=== PATIENT | male | born 1955 | race Caucasian/White ===

== ENCOUNTER 2018-01-01 00:31 | Inpatient (IN) | payer OTHER ==
[~2018-01-01] VITALS: Ht 193 cm; Wt 149.7 kg
[~2018-01-01 00:31] MED LIST: ASPIRIN EC325 M2 PO; COLACE100 M1 PO; DILAUDID2 M1 PO; LISINOPRIL-HCT1 EAC1 PO; LISINOPRIL20 M1 PO; MIRALAX17 G1 PO; TRAMADOL HCL50 M1 PO; VITAMIN B-121000 MC3 PO; VITAMIN D3400 UNI1 PO; XALATAN2.5 ML OPH
--- NOTE | 2018-01-01 13:53 | Operative Report ---
Operative/Inv Procedure Report Surgery Date: 01/01/18 Name of Procedure: Right total knee replacement Pre-Operative Diagnosis: Primary right knee DJD Post-Operative Diagnosis: Same Estimated Blood Loss: 50ml to 100ml Surgeon/Folder Taper Operator: Michael FIGUEROA,Charlie Canseco Anesthesia: block Operative/Procedure Note Note: Description of Procedure: The patient was taken to the operating room and positively identified. After induction of spinal anesthesia and administration of appropriate pre-operative antibiotics, the patient was positioned supine on the operating room table and all bony prominences were well padded. A well-padded pneumatic tourniquet was placed on the right upper thigh. After performing a surgical timeout, the right lower extremity was prepped and draped in the usual sterile fashion. After exsanguination with Esmarch the tourniquet was inflated to 275 mm of mercury. A standard medial parapatellar approach was made to the knee. This was carried down through skin and subcutaneous tissue to the level of the fascia. Meticulous hemostasis was maintained with Bovie electrocautery. The extensor mechanism and patellar retinaculum were opened sharply and the patella was everted. The infrapatellar fat was resected in order to improve exposure. Osteophytes were trimmed from the patella and femoral condyles and the patella was re-everted and tucked laterally. A medial release was performed and the cruciate ligaments were resected. The tibia was then subluxed anteriorly. Utilizing the appropriate extra-medullary guide, the proximal tibia was trimmed perpendicular to the long axis of the tibial shaft. Attention was then turned to the femur. After opening the medullary canal, the distal femoral cut was made in 6 degrees of valgus utilizing the appropriate intra-medullary guide. The extension gap was checked and found to be appropriate. The femur was then sized and the remainder of the femoral cuts were made with a size 7 4-in-1 femoral cutting guide. The flexion gap was checked and found to be symmetric and appropriate. The knee was then trialed with a size 7 femoral component, a size 7 tibial component and a size 11 mm polyethylene insert. The patella was trimmed to accept an A 35 patella. This yielded excellent range of motion, stability and patellar tracking. All trial components were removed and the knee was copiously irrigated with sterile saline. All components were cemented into place with [place] Simplex cement. All the components were of the Lauryn Triathlon knee system of the above stated sizes. The knee was again irrigated after cementation. The extensor mechanism and patellar retinaculum were repaired using interrupted #1 vicryl suture. The skin was re-approximated with 2-0 vicryl and closed with haider. A sterile dressing was applied, the tourniquet was deflated, the patient was awakened and taken to the recovery room in satisfactory condition.
--- NOTE | 2018-01-01 14:05 | Admission Core Measures ---
Acute Coronary Syndrome (CM) ACS Core Measures Acute Coronary Syndrome Diagnosis No Congestive Heart Failure (NEW) CHF Core Measures Congestive Heart Failure Diagnosis No Cerebrovascular Accident (NEW) CVA Core Measures CVA/TIA Diagnosis No Venous Thromboembolism VTE Core Brenna (View Protocol) VTE Risk Factors Surgery No Mechanical VTE Prophylaxis d/t N/A MechProphylax Ordered No VTE Pharm Prophylaxis d/t NA PharmProphylax ordered Problem List As ranked by this Provider includes Assessment & Plan 1. S/P knee replacement HOME MEDS Home Med List Aspirin (Ecotrin*) 325 MG TABLET.DR 1 TAB PO BID ANTICOAGULATION Cholecalciferol (Vitamin D3) (Vitamin D3) (Unknown Strength) TABLET 2,000 IU PO DAILY SUPPLEMENT (Reported) Cyanocobalamin (Vitamin B-12) (Unknown Strength) TABLET 2,000 MCG PO DAILY SUPPLEMENT (Reported) Latanoprost (Xalatan) 2.5 ML DROPS 1 GTT OPH QPM BOTH EYES (Reported) Lisinopril 20 MG TABLET 1 TAB PO DAILY Blood Pressure Tramadol HCl 50 MG TABLET 1 TAB PO Q6P PRN MODERATE PAIN
[2018-01-01] MEDS ORDERED: PRILOSEC OTC20 M1 PO (14:07)
[2018-01-01] MEDS ORDERED: COLACE100 M1 PO (14:07)
[2018-01-01] MEDS ORDERED: PERCOCET 5-3251 EACH PO (14:07)
[2018-01-01] MEDS ORDERED: ASPIRIN EC325 M2 PO (14:07)
[2018-01-01] MEDS ORDERED: MIRALAX17 G1 PO (14:07)
[2018-01-01] MEDS ORDERED: MS CONTIN15 M3 PO (14:07)
--- NOTE | 2018-01-01 14:12 | Patient Discharge Instructions ---
Discharge Instructions General Discharge Information You were seen/treated for: Right knee pain related to unilateral primary osteoarthritis You had these procedures: Right total knee replacement Watch for these problems: Increasing pain despite the use of pain medication Increasing redness, warmth or swelling Drainage of any type from incision Inability to bear weight on operative leg Persistent nausea and vomiting Fever greater than 101.5 degrees Do not soak the wound: No No bath, but you may shower: Yes Other wound care: Please keep wound clean and dry. No ointments or lotions of any type on or near incision at any time. No exceptions. Your dressing will be changed by your nurse on the second day after your surgery. Daily dry dressing changes are recommended each day thereafter. Do not soak your wound in a bath at any time until otherwise indicated by your surgeon. You may shower, please dry wound immediately after shower with a clean towel. Special Instructions: Aspirin: You are taking this medication to help prevent blood clot formation. Please take with food to protect your stomach lining. Please take as directed. Constipation: Pain medication can cause constipation. Dr. Rodriguez has recommended that you take Colace and miralax each day. You may discontinue this medication if you develop loose stool or diarrhea. If you wish to continue this medication, it is available over the counter. If you are unable to move your bowels after several days, if you are unable to pass gas and are developing bloating, nausea, or vomiting as a result, please contact your doctor. Diet Continue normal diet: Yes Recommended Diet: Regular Activity Full Activity/No Limits: No Activity Self Limited: Yes Pounds, do NOT lift more than: 10 Acute Coronary Syndrome Inclusion Criteria At DC or during hospital stay patient has or had the following: ACS DIAGNOSIS No Discharge Core Measures Meds if any: Prescribed or Continued at Discharge Meds if any: NOT Prescribed or Continued at Discharge Congestive Heart Failure Inclusion Criteria At DC or during hospital stay patient has or had the following: CHF DIAGNOSIS No Discharge Core Measures Meds if any: Prescribed or Continued at Discharge Meds if any: NOT Prescribed or Continued at Discharge Cerebrovascular accident Inclusion Criteria At DC or during hospital stay patient has or had the following: CVA/TIA Diagnosis No Discharge Core Measures Meds if any: Prescribed or Continued at Discharge Meds if any: NOT Prescribed or Continued at Discharge Venous thromboembolism Inclusion Criteria VTE Diagnosis No VTE Type NONE VTE Confirmed by (Test) NONE Discharge Core Measures - Per Current guidelines, there needs to be overlap - treatment for the first 5 days of Warfarin therapy. - If discharged on Warfarin prior to 5 days of - overlap therapy, the patient will need to be - assessed for post discharge needs including - *Post discharge parental anticoagulation - *Warfarin and/or parental anticoagulation education - *Follow up date to check INR post discharge At least 5 days overlap therapy as Inpatient No Meds if any: Prescribed or Continued at Discharge Note: Overlap Therapy is Warfarin and Anticoagulant Meds if any: NOT Prescribed or Continued at Discharge
--- NOTE | 2018-01-01 14:13 | Surgical Discharge Summary ---
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 Relation not specified for: FH: polycystic kidney Psychosocial History Who Do You Live With? Family What is Your Primary Language? Lao Review of Systems: refer to H&P Hospital Course Course Attending Physician: Charlie Rodriguez MD Primary Care Physician: Dmitriy Porras MD Hospital Course: Patient was admitted to the hospital for an elective total joint replacement. The procedure was tolerated well and patient was transferred to a general surgical floor. Diet was advanced and tolerated. The patient was evaluated and treated by physical therapy. At the time of hospital discharge, the vital signs were stable, neurovascular status was intact, and pain was controlled with the use of oral pain medications. Allergies: Coded Allergies: hydromorphone (From DILAUDID) (SYNCOPE 12/28/17) Disposition Summary Disposition Principal Diagnosis: Right knee unilateral primary osteoarthritis Additional Diagnosis: None Discharge Disposition: home health services Discharge Instructions General Discharge Information Code Status: Full Code Patient's Diet: Regular, advance as tolerated Patient's Activity: WBAT Follow-Up Instructions/Appts: Follow up with Dr. Rodriguez in 6 weeks from date of surgery. Please call office to arrange &/or confirm this appointment. Medications at Discharge Discharge Medications: Stop taking the following medications: Aspirin (Ecotrin*) 325 MG TABLET. ORAL TWICE DAILY Qty = 60 Tramadol HCl (Tramadol HCl) 50 MG TABLET ORAL EVERY SIX HOURS NEEDED as needed for MODERATE PAIN Qty = 20 Continue taking these medications: Latanoprost (Xalatan) 2.5 ML DROPS 1 Drop In the eye Every night Comments: Last Taken:12/25/15 Time: 0200 AM Cyanocobalamin (Vitamin B-12) (Unknown Strength) TABLET 2,000 Microgram ORAL DAILY Comments: GIVEN 12/25/15 @ 1030 Cholecalciferol (Vitamin D3) (Vitamin D3) (Unknown Strength) TABLET 2,000 International Unit ORAL DAILY Comments: GIVEN 12/25/15 @ 1030 Lisinopril (Lisinopril) 20 MG TABLET 1 Tablet ORAL DAILY Days = 30 Comments: GIVEN 12/25/15 @ 1030 Start taking the following new medications: Aspirin (Ecotrin*) 325 MG TABLET.DR 1 Tablet ORAL TWICE DAILY Qty = 60 No Refills Docusate Sodium (Colace) 100 MG CAPSULE 1 Capsule ORAL TWICE DAILY Qty = 14 No Refills Instructions: DISCONTINUE USE IF YOU DEVELOP LOOSE STOOL OR DIARRHEA Polyethylene Glycol 3350 (Miralax) 17 GRAM POWD.PACK 1 Packet ORAL DAILY Qty = 7 No Refills Instructions: dissolve in water, DISCONTINUE USE IF YOU DEVELOP LOOSE STOOL OR DIARRHEA Omeprazole Magnesium (Prilosec Otc) 20 MG TABLET.DR 1 Tablet ORAL DAILY Qty = 30 No Refills Oxycodone HCl/Acetaminophen (Percocet 5-325 MG Tablet) 5 MG-325 MG TABLET 1-2 Tablet ORAL EVERY 4-6 HOURS as needed for PAIN Qty = 36 No Refills Morphine Sulfate (Ms Contin) 15 MG TABLET.ER 1 Tablet ORAL TWICE DAILY Qty = 6 No Refills
--- NOTE | 2018-01-01 15:26 | PN- Orthopedic ---
Subjective Subjective: Postop check: Patient without complaints, no pain, states he is hungry, no other perioperative issues Objective Vital Signs and I&Os Vital signs stable, afebrile, blood pressure 101/60 Physical Exam: Well-developed well-nourished no apparent distress. HEENT: Atraumatic, extraocular motion intact Neck: Supple, no lymphadenopathy Respiratory: No respiratory distress Extremities: No edema RIGHT lower extremity dressing in place, Compression wrap in place. ALPS in place Neurovascularly intact distally Bilateral calves are supple, nontender. Neuro: Alert and oriented x3 Psych: Mood affect normal, normal memory normal judgment. Skin: Warm and dry, no rash on exposed skin Assessment/Plan Assessment/Plan Postop day #0 status post right total knee arthroplasty. Perioperative antibiotics. Pain medication as needed. Out of bed Physical therapy, weightbearing as tolerated IV fluids Regular diet Follow a.m. labs Aspirin for DVT prophylaxis ALPS for DVT prophylaxis Regular home meds Dressing change postop day 2 Patient would like to start with minimal narcotic pain medication as he has had history of syncope 2 in the past after surgery. Standing IV Toradol 4 doses, tramadol ordered as well for mild pain which has helped him in the past. Disposition: Plan is for patient to go home with VNA services in 2-3 nights Core Measures Venous Thromboembolism VTE Risk Factors Surgery No Mechanical VTE Prophylaxis d/t N/A MechProphylax Ordered No VTE Pharm Prophylaxis d/t NA PharmProphylax ordered
[2018-01-01 15:45] VITALS: BP 118/72
[2018-01-01 18:14] VITALS: BP 120/64
[2018-01-01 20:13] VITALS: BP 100/60
[2018-01-01 22:39] VITALS: BP 120/60
[2018-01-02] VITALS (8 sets, daily range): BP systolic 80–120; BP diastolic 58–70
--- NOTE | 2018-01-02 07:58 | PN- Orthopedic ---
Subjective Subjective: Patient in good spirits, states he is hungry. Complains of moderate pain in the back of the knee, no anterior knee pain. He was unable to urinate and needed a straight cath as well as a Ya catheter. Urinary symptoms have resolved. Objective Vital Signs and I&Os Vital Signs Date Time Temp Pulse Resp B/P B/P Pulse O2 O2 Flow FiO2 Mean Ox Delivery Rate 01/02 718 98.5 79 20 120/62 92 Room Air 01/02 0200 98.6 85 20 118/68 93 Room Air 01/01 2239 98.9 90 20 120/60 91 Room Air 01/01 2013 98.6 95 20 100/60 91 Room Air 01/01 1814 98.4 87 20 120/64 92 Room Air 01/01 1545 97.5 86 18 118/72 95 Room Air Intake & Output 01/02 0800 06/ 0000 /04 1600 01/01 0800 01/01 0000 /03 1600 Intake Total 1270 2040 Output Total 1250 1650 Balance 20 390 Intake, IV 790 600 Intake, Oral 480 1440 Number 0 0 Bowel Movements Output, Urine 1250 1650 Patient 330 lb Weight Weight Standing Scale Measurement Method Physical Exam: Well-developed well-nourished no apparent distress. HEENT: Atraumatic, extraocular motion intact Neck: Supple, no lymphadenopathy Respiratory: No respiratory distress Extremities: No edema RIGHT lower extremity dressing in place, clean dry and intact, no active bleeding Range of motion 0-[address] in place Neurovascularly intact distally Bilateral calves are supple, nontender. Neuro: Alert and oriented x3 Psych: Mood affect normal, normal memory normal judgment. Skin: Warm and dry, no rash on exposed skinnsert postop total knee Results Last 48 Hours of Labs: Laboratory Tests 01/02 07 Chemistry Sodium Pending Potassium Pending Chloride Pending Carbon Dioxide Pending Anion Gap Pending BUN Pending Creatinine Pending BUN/Creatinine Ratio Pending Hematology CBC w Diff Pending WBC Pending RBC Pending Hgb Pending Hct Pending MCV Pending MCH Pending MCHC Pending RDW Pending Plt Count Pending MPV Pending Assessment/Plan Assessment/Plan Postop day 1 status post right total knee arthroplasty Perioperative antibiotics. Pain medication as needed. Out of bed Physical therapy, weightbearing as tolerated DC IV fluids Regular diet Ya catheter until tomorrow, remove and trial of void in the morning, flomax started Follow a.m. labs Aspirin for DVT prophylaxis ALPS for DVT prophylaxis Regular home meds Dressing change postop day 2 Core Measures Venous Thromboembolism VTE Risk Factors Surgery No Mechanical VTE Prophylaxis d/t N/A MechProphylax Ordered No VTE Pharm Prophylaxis d/t NA PharmProphylax ordered
[2018-01-02 08:01] LABS: ABSOLUTE BASOPHIL COUNT 0 /CUMM (0.0-0.2); ABSOLUTE EOSINOPHIL COUNT 0 /CUMM (0.0-0.7); ABSOLUTE LYMPH COUNT 1.5 /CUMM (1.2-3.4); ABSOLUTE MONOCYTE COUNT 0.9 /CUMM (0.10-0.60); BASOPHIL % 0.1 % (0.0-2.0); EOSINOPHIL % 0.3 % (0-5); GRANULOCYTE % 76.2 % (42.2-75.2); HEMATOCRIT 36.8 % (42-52); MEAN CORPUSCULAR HGB CONC 34.3 G/DL (33.0-37.0); MEAN CORPUSCULAR VOLUME 96.3 FL (80.0-94.0); MEAN PLATELET VOLUME 7.6 FL (7.4-10.4); PLATELET COUNT 264 /CUMM (130-400); RBC DISTRIBUTION WIDTH 13.6 % (11.5-14.5); RED BLOOD CELL CT 3.82 /CUMM (4.70-6.10); WHITE BLOOD CELL COUNT 10.5 /CUMM (4.8-10.8)
[2018-01-03 06:27] VITALS: BP 112/56
--- NOTE | 2018-01-03 07:45 | PN- Orthopedic ---
Subjective Subjective: No acute overnight events. Patient slept well and is tolerating pain, has more sensation to right knee vs yesterday. Denies chest pain, shortness of breath and difficulty breathing. Denies nausea and vomitting. Has had a guillaume catheter due to urinary retention/inability to void post op. Anticiaptes void trial today. Objective Vital Signs and I&Os Vital Signs Date Time Temp Pulse Resp B/P B/P Pulse O2 O2 Flow FiO2 Mean Ox Delivery Rate 01/03 0627 72 18 112/56 93 / 0527 99.4 06/05 2330 100.2 06/ 2137 101.0 06/05 2106 101.0 85 16 110/60 93 Room Air 06/05 1800 99.0 06/05 1637 99.5 06/05 1425 100.0 74 18 110/58 92 06/05 1238 80 22 116/70 93 Room Air 06/05 1142 74 90/60 06/05 1129 99.2 72 18 80/60 91 Room Air 06/05 1034 98.3 74 20 118/64 93 Room Air 06/05 0858 78 122/80 Intake & Output / 0800 06/06 0000 06/05 1600 06/05 0800 06/05 0000 06/04 1600 Intake Total 1200 1500 1270 2040 Output Total 500 802 353 3551 1650 Balance -715 378 7909 20 390 Intake, IV 600 790 600 Intake, Oral 1200 905 033 9616 Number 0 0 0 0 Bowel Movements Output, Urine 500 482 993 8012 1650 Patient 330 lb Weight Weight Standing Scale Measurement Method Physical Exam: General: AAO x3, pleasant, no acute distress Cardiac: RRR, s1s2 Pulm: C T A bilaterally, non-labored respiratory effort Abd: Soft, non-tender, non-distended Extremities: Moves all extremities, distal sensation grossly intact. Skin warm and well perfused. Bilateral calves soft and non-tender. Surgical site: Right knee, dressing dry and intact. Changed. Skin edges well approximated. No drainage. Clean, dry dressing reapplied. Assessment/Plan Assessment/Plan This is a 62 year old male, POD 2, s/p R TKR -DC guillaume today, trial void, continue flomax -OOB, PT, WBAT -Continue bowel regimen -Continue current pain regimen -Continue asa 325 bid for dvt ppx -Anticipate dc to home today vs tomorrow Will discuss poc with Dr. Rodriguez Core Measures Venous Thromboembolism VTE Risk Factors Surgery No Mechanical VTE Prophylaxis d/t N/A MechProphylax Ordered No VTE Pharm Prophylaxis d/t NA PharmProphylax ordered
[2018-01-03 09:53] VITALS: BP 100/60
[2018-01-03 14:12] VITALS: BP 120/58
[2018-01-03 21:30] VITALS: BP 130/68
[2018-01-04 06:37] VITALS: BP 136/70
[2018-01-04 14:31] VITALS: BP 123/65
== END 2018-01-04 18:30 | disposition home health service (06) | DRG 470 ==
LOC: SDA 00:31 → ENRESERV 14:03 → ENTRNSPT 15:20 → EDTRNSPTSTS 15:32 → EDTRNSPT 15:32 → 2NB 15:41 → CMPTRNSPT 15:51 → ENPENDDIS 01-04 10:26 → ENTRNSPT 01-04 18:10 → EDTRNSPTSTS 01-04 18:16 → EDTRNSPT 01-04 18:16 → 2NB 01-04 18:30 → CMPTRNSPT 01-04 18:36
PROVIDERS: Nurse Practitioner
PROC: 3E0T3BZ Introduction of Anesthetic Agent into Peripheral Nerves and Plexi, Percutaneous Approach (ICD-10-PCS; principal; 2018-01-01)
PROC: 0SRC0J9 Replacement of Right Knee Joint with Synthetic Substitute, Cemented, Open Approach (ICD-10-PCS; principal; 2018-01-01)
DX: M17.11 Unilateral primary osteoarthritis, right knee (principal); Z68.41 Body mass index [BMI] 40.0-44.9, adult; F41.9 Anxiety disorder, unspecified; I10 Essential (primary) hypertension; G47.33 Obstructive sleep apnea (adult) (pediatric); H40.9 Unspecified glaucoma; E66.9 Obesity, unspecified; Z88.5 Allergy status to narcotic agent; Z96.651 Presence of right artificial knee joint
CPT/HCPCS: 2NBSP; 36415; 82436; 87086; 88305; 97110-GO; 97116-GO; 97530-GO; C1713; C9290; J0131; J0690; J2405; J7040; J7042